=== PATIENT | female | born 1955 | race Caucasian/White ===

== ENCOUNTER 2016-05-18 18:55 | Outpatient (CLI) | payer OTHER | END 2016-05-18 18:56 | disposition home or self-care (01) | DX: N95.0 Postmenopausal bleeding (principal) ==

== ENCOUNTER 2016-08-09 20:01 | Outpatient (CLI) | payer OTHER ==
--- NOTE | 2016-08-10 11:10 | Ultrasound Report ---
PELVIC ULTRASOUND: 08/09/2016 CLINICAL INDICATION: Postmenopausal bleeding. COMPARISON: 05/18/2016 TECHNIQUE: Transabdominal pelvic ultrasound performed for global evaluation. Transvaginal pelvic ul trasound performed for detailed evaluation. Real-time scanning performed and static images obtained. FINDINGS: The uterus is anteverted, measuring 6.8 x 5.0 x 3.8 cm. The endometrial echo complex vinicius ures 8 mm. No focal myometrial lesion is present. The right ovary measures 2.0 x 1.8 x 1.5 cm, and contains a 1.5 cm cyst. The left ovary was not confidently identified on transabdominal or transvagi nal imaging. No free fluid is present. IMPRESSION: 1. THICKENED ENDOMETRIUM. CORRELATION WITH ENDOMETRIAL BIOPSY IS RECOMMENDED. 2. A 1.5 CM SIMPLE RIGHT OVARIAN CYST. JOB #: [id number] EXT JOB #:[id number]
== END 2016-08-09 20:02 | disposition home or self-care (01) ==
LOC: DI 20:01
PROVIDERS: ATTEND Family Medicine Addiction Medicine
DX: R93.8 Abnormal findings on diagnostic imaging of other specified body structures (principal); N83.201 Unspecified ovarian cyst, right side
CPT/HCPCS: 76830; 76856